=== PATIENT | female | born 1980 | race Caucasian/White ===

== ENCOUNTER 2017-09-14 03:06 | Emergency (ER) | payer BC, SELFPAY ==
[2017-09-14 03:08] VITALS: BP 138/78; PULSE 81; RESP 18; TEMP 36.7; O2SAT 97; BMI 44.7
--- NOTE | 2017-09-14 03:23 | RAD_ITS ---
STUDY: X-RAY CHEST REASON FOR EXAM: Female, 37 years old. Heart palpitation and dizziness TECHNIQUE: PA and lateral views of the chest. COMPARISON: None. FINDINGS: The lungs are clear and expanded. There is no demonstrated pleural abnormality. Normal size heart. Normal mediastinum and jesus. Normal visualized pulmonary arteries. Normal visualized aortic arch and descending thoracic aorta. Normal visualized thoracic spine. Normal visualized ribs, clavicles, and shoulders. There is no demonstrated abnormality of the visualized soft tissue structures of the upper abdomen. RAD/Chest PA and Lateral IMPRESSION: Normal x-ray examination of the chest. Electronically Signed: Mily Edmondson MD at 4:42 EDT , Service support ,
--- NOTE | 2017-09-14 03:23 | EKG12_ITS ---
Test Reason : PALPS Blood Pressure : / mmHG Vent. Rate : 078 BPM Atrial Rate : 078 BPM P-R Int : 156 ms QRS Dur : 076 ms QT Int : 374 ms P-R-T Axes : 061 014 044 degrees QTc Int : 426 ms Normal sinus rhythm Normal ECG Confirmed by ALICIA SCHWARTZ, MARICARMEN ([id number]), glass lathe operator CHELLY VALENCIA ([id number]) on 09/17/2017 2:06:01 PM Referred By: DEDE Confirmed By:MAIRCARMEN VARGAS MD
[2017-09-14] MEDS: 0.9% Normal Saline 1,000 ML 1000 ML IV (03:32)
[2017-09-14 03:33] VITALS: BP 120/80; BP 129/87; BP 138/75; PULSE 74; PULSE 80; PULSE 84
[2017-09-14 03:36] LABS: Bedside Glucose 143 mg/dL (70-110)
--- NOTE | 2017-09-14 03:37 | NURSING ---
NO OLD EKG'S IN MUSE
[2017-09-14 03:39] LABS: Absolute Lymphocyte Count 2.44 X10^3/ul (0.83-4.51); Basophil# 0.03 X10^3/uL; Basophil% 0.3 % (0-1); Eosinophil# 0.18 X10^3/uL; Eosinophils% 1.9 % (0-5); Hematocrit 36.5 % (37-47); Hemoglobin 12.1 g/dl (12.0-15.0); Lymphocyte # 2.44 X10^3/ul (4.0); Lymphocyte % 26.1 % (19-41); Mean Corp Hgb Conc 33.2 g/gl (32-36); Mean Corpuscular Hgb 30.9 pg (27.0-32.0); Mean Corpuscular Volume 93.1 fL (81-99); Mean Platelet Vol. 10.8 fl (6.2-12.0); Monocyte% 7.5 % (0-10); Neutrophil # 5.98 X10^3/uL (2.7-7.7); Platelet Count 173 K/mm3 (150-450); RBC Distribution Width CV 13.2 % (11.6-14.6); RBC Distribution Width SD 43.7 fl (35.1-43.9); Red Blood Count 3.92 M/mm3 (4.2-5.4); White Blood Count 9.4 K/mm3 (4.4-11.0)
[2017-09-14 03:44] LABS: POSITIVE COUNT NO; POSITIVE DIFFERENTIAL NO; POSITIVE MORPHOLOGY NO
[2017-09-14 03:47] LABS: D-Dimer Quantitative (DVT/PE) 0.44 FEU/ug/m (0.27-0.49)
[2017-09-14 03:56] LABS: Anion Gap 8 (5-15); BUN 16 mg/dL (7-18); BUN/Creat Ratio 16.5 RATIO (10-20); Chloride 107 mmol/L (98-107); Creatinine, Serum 0.97 mg/dL (0.55-1.02); EST Glomerular Filtration Rate 69 mL/min (>60); Est Glom Filt Rate - Afr Amer 83 mL/min (>60); Estimated Creatinine Clearance 83.79 ml/min; Glucose 120 mg/dL (74-106); Potassium 3.7 mmol/L (3.5-5.1); Sodium Level 139 mmol/L (136-145); Thyroid Stim Hormone (TSH) 2.25 uIU/mL (0.358-3.74)
[2017-09-14 04:00] LABS: Pregnancy, Serum, hCG Quali. NEGATIVE Negative (0-9 Nonpreg)
--- NOTE | 2017-09-14 04:10 | ED.VISSUMM ---
- ER Visit Summary Date of Service: 09/14/17 Chief Complaint: Palpitations History of Present Illness: The patient is a 37 F who presents with palpitations. Today while at work she felt like her heart was fluttering or skipping and then beating hard. She does have a history of prior similar symptoms about a week ago. She states that she did feel dizzy and lightheaded with this episode. She felt slightly short of breath. She reports a chronic cough which is unchanged from baseline. No recent illness. No fever congestion rhinorrhea. No nausea vomiting or diarrhea. No chest pain. She was told last fall that she was prediabetic but has no other known medical problems and is on no daily medications. Physical Examination: Afebrile vitals are normal Moist mucous membranes Heart regular rate and rhythm Lungs are clear to auscultation Abdomen is soft Extremities are nontender Test Results: EKG shows sinus rhythm at a rate of 78 with no acute ischemic changes no dysrhythmia. CBC BMP normal. Troponin negative. negative. D-dimer normal. TSH normal. Two-view chest x-ray on my review is unremarkable. Emergency Department Course and Treatment: Patient has normal vital signs with normal cardiac monitoring and a normal EKG here. Her symptoms had resolved prior to presentation here. She is currently asymptomatic. She has a normal workup with normal laboratory studies. Her palpitations could be related to PACs or PVCs but no evidence of life-threatening dysrhythmia here. She was advised to follow-up as an outpatient. She understands to return for new or worsening symptoms. All questions answered bedside. Patient discharged. Treatment Plan: [] Disposition: Discharge Impression: Palpitations This note was generated with [employer] dictation software. It may contain incorrect words, spelling, and punctuation that were not noted in review of the chart prior to signing ED Disposition - Plan for ED Patient: Chief Complaint: Palpitations Referrals: Care Physician,No Primary [Primary Care Provider] -
--- NOTE | 2017-09-14 04:13 | ED.DEP ---
ED Disposition - Plan for ED Patient: Chief Complaint: Palpitations Instructions: ED Palpitations Referrals: Care Physician,No Primary [Primary Care Provider] - Livan Aponte MD [STAFF PHYSICIAN] -
[2017-09-14 04:20] VITALS: BP 104/92; PULSE 70; RESP 15; O2SAT 100
== END 2017-09-14 04:25 | disposition home or self-care (01) ==
PROVIDERS: Emergency Provider Emergency Medicine
DX: R00.2 Palpitations (principal); R42 Dizziness and giddiness; R06.02 Shortness of breath; R05 Cough; R73.03 Prediabetes
CPT/HCPCS: 71046; 80048; 82962; 84443; 84484; 84703; 85025; 85379; 93005; 96360; 99285; J7030; A4216

== ENCOUNTER 2018-05-24 15:02 | Emergency (ER) | payer OTHER, SELFPAY ==
[2018-05-24 15:03] VITALS: BP 173/75; PULSE 76; RESP 16; TEMP 36.5; O2SAT 98; BMI 46.0
--- NOTE | 2018-05-24 15:28 | ED.VISSUMM ---
- ER Visit Summary Date of Service: 05/24/18 Chief Complaint: Facial injury secondary to fall History of Present Illness: The patient is a 38 F who presents secondary to facial injury after fall. This occurred at work. She misjudged a flat area in front of the car. She landed on her face. No loss conscious. Denies neck pain. Denies paresthesia, anesthesia motors. She denies loose dentition or malalignment of her teeth. She denies difficulty opening or closing her mouth. She denies any ocular, auditory or visual symptoms. She denied cardiac respiratory symptoms. Tetanus is unknown. Physical Examination: Vital signs are noted and blood pressure is elevated 173/75. She has an abrasion over the left maxillary region. There is no hyperesthesia the pulmonary. There is no step-off with palpation the infra orbital rim. Pupils equal round reactive. Extra muscle intact. No subconjunctival hemorrhage. No clinical signs of basal skull fracture. No loose dentition. No TMJ tenderness. No evidence of malocclusion. Trachea midline. No midline cervical spine tenderness and full active range of motion. Patient is alert and oriented ?3. Motor is 5 over 5. Sensory is intact. DTRs are symmetric with no clonus or Babinski sign. Cranial 2 through 12 are intact. Cerebellar testing is normal. GCS 15. Test Results: None are indicated Emergency Department Course and Treatment: Tetanus immunization Treatment Plan: Appropriate home-going instructions Disposition: Discharged home with referral to corporate care Impression: Facial abrasion secondary to fall initial encounter This note was generated with [employer] dictation software. It may contain incorrect words, spelling, and punctuation that were not noted in review of the chart prior to signing ED Disposition - Plan for ED Patient: Chief Complaint: Fall Referrals: Care Physician,No Primary [Primary Care Provider] -
--- NOTE | 2018-05-24 15:34 | ED.VISSUMM ---
- ER Visit Summary Date of Service: 05/24/18 Chief Complaint: [] History of Present Illness: The patient is a 38 F [] Physical Examination: [] Test Results: [] Emergency Department Course and Treatment: [] Treatment Plan: [] Disposition: [] Impression: [] This note was generated with [employer] dictation software. It may contain incorrect words, spelling, and punctuation that were not noted in review of the chart prior to signing ED Disposition - Plan for ED Patient: Chief Complaint: Fall Instructions: ED Abrasion Referrals: Care Physician,No Primary [Primary Care Provider] - [facility] [GROUP OF PHYSICIANS] -
--- NOTE | 2018-05-24 15:55 | ED.RN ---
PT WAS ABLE TO ACCESS VACCINATION RECORDS FROM PCP, LAST TETANUS RECEIVED IN 2017
--- NOTE | 2018-05-24 15:55 | ED.RN ---
DISCHARGE INSTRUCTIONS GIVEN TO AND REVIEWED WITH PATIENT, PATIENT DENIES QUESTIONS OR CONCERNS AND VOICES UNDERSTANDING OF DISCHARGE INSTRUCTIONS. PT AMBULATES OUT OF ROOM WITHOUT DIFFICULTY.
--- OUTSIDE RECORDS SUMMARY | 2018-07-20 08:23 | XMS RPT_ITS ---
:1980 Author Organization [facility] Care Team Providers Name Role Phone DANGELO PERSAUD ([facility]) Attending Unavailable DANGELO PERSAUD ([facility]) Referring Unavailable KEIRY SCHWARTZ, DANIELE Shen Attending Unavailable PHYSICIAN, NONE Primary Care Unavailable Primay Care Physicia, No Primary Care Unavailable Robin Smith Attending Unavailable Sunny Posey Attending Unavailable Prim[facility] Care Physicia, No Referring Unavailable Prim[facility] Care Physicia, No Primary Care Unavailable Primay Care Physicia, No Primary Care Unavailable Kaushal Cardoso Attending Unavailable PROBLEMS PROBLEMS DATE TYPE CONDITION / CODE ATTENDING STATUS SOURCE 10/29/2017 Active Encounter for NA Active [facility] adult [facility] medical Repository examination without abnormal findings / Z00.00(ICD-10) 10/29/2017 Active Prediabetes / NA Active [facility] R73.03(ICD-10) Main [place] Repository 10/29/2017 Active Hyperlipidemia, NA Active [facility] unspecified / Main [place] E78.5(ICD-10) Repository PROCEDURES PROCEDURES No Procedure Records FoundRESULTS RESULTS EMERGENCY DEPARTMENT Observed: 05/24/2018 Status: F Source: [place] SUMMARY 3:35 PM [facility] REPOSITORY [facility] Medical Records Department [address] [place] [address] Emergency Department Summary 05/24/18 1534 MR#: [id number] Acct: [id number] Name: NILESH KILGORE Rep #: [id number] : 1980 38 From: Kaushal Cardoso MD PCP: Care Physician, No Primary Status: REG ER - ER Visit Summary Date of Service: 05/24/18 Chief Complaint: [] History of Present Illness: The patient is a 38 F [] Physical Examination: [] Test Results: [] Emergency Department Course and Treatment: [] Treatment Plan: [] Disposition: [] Impression: [] This note was generated with Go Vocab dictation software. It may contain incorrect words, spelling, and punctuation that were not noted in review of the chart prior to signing ED Disposition - Plan for ED Patient: Chief Complaint: Fall Instructions: ED Abrasion Referrals: Care Physician,No Primary [Primary Care Provider] - Corporate,Care [GROUP OF PHYSICIANS] - What to do if you have Problems For any increased pain, shortness of breath, bleeding, nausea or vomiting, chest pain, or any unexpected problems, contact your Primary Care Provider. Call [facility] ([phone]) or report to the closest Emergency Room. Call 911 if necessary. 05/24/18 1535 <Electronically signed by Kaushal Cardoso MD> Date Kaushal Cardoso MD Cosigner Signature (If Indicated): Date CC: No Primary Care Physician EMERGENCY DEPARTMENT Observed: 05/24/2018 Status: F Source: [place] SUMMARY 3:31 PM [facility] REPOSITORY [facility] Medical Records Department [address] [place] [address] Emergency Department Summary 05/24/18 1528 MR#: [id number] Acct: [id number] Name: NILESH KILGOER Rep #: [id number] : 1980 38 From: Kaushal Cardoso MD PCP: Care Physician, No Primary Status: REG ER - ER Visit Summary Date of Service: 05/24/18 Chief Complaint: Facial injury secondary to fall History of Present Illness: The patient is a 38 F who presents secondary to facial injury after fall. This occurred at work. She misjudged a flat area in front of the car. She landed on her face. No loss conscious. Denies neck pain. Denies paresthesia, anesthesia motors. She denies loose dentition or malalignment of her teeth. She denies difficulty opening or closing her mouth. She denies any ocular, auditory or visual symptoms. She denied cardiac respiratory symptoms. Tetanus is unknown. Physical Examination: Vital signs are noted and blood pressure is elevated 173/75. She has an abrasion over the left maxillary region. There is no hyperesthesia the pulmonary. There is no step-off with palpation the infra orbital rim. Pupils equal round reactive. Extra muscle intact. No subconjunctival hemorrhage. No clinical signs of basal skull fracture. No loose dentition. No TMJ tenderness. No evidence of malocclusion. Trachea midline. No midline cervical spine tenderness and full active range of motion. Patient is alert and oriented 3. Motor is 5 over 5. Sensory is intact. DTRs are symmetric with no clonus or Babinski sign. Cranial 2 through 12 are intact. Cerebellar testing is normal. GCS 15. Test Results: None are indicated Emergency Department Course and Treatment: Tetanus immunization Treatment Plan: Appropriate home-going instructions Disposition: Discharged home with referral to corporate care Impression: Facial abrasion secondary to fall initial encounter This note was generated with Magicbloxation software. It may contain incorrect words, spelling, and punctuation that were not noted in review of the chart prior to signing ED Disposition - Plan for ED Patient: Chief Complaint: Fall Referrals: Care Physician,No Primary [Primary Care Provider] - What to do if you have Problems For any increased pain, shortness of breath, bleeding, nausea or vomiting, chest pain, or any unexpected problems, contact your Primary Care Provider. Call [facility] ([phone]) or report to the closest Emergency Room. Call 911 if necessary. 05/24/18 1531 <Electronically signed by Kaushal Cardoso MD> Date Kaushal Cardoso MD Cosigner Signature (If Indicated): Date CC: Care Corporate; No Primary Care Physician COMP METABOLIC PANEL Collected: 10/29/2017 Status: F Source: [place] 11:[address] [facility] REPOSITORY TYPE CODE TESTS RESULT OUT OF REFERENCE UNITS RANGE LAB TP 6.3-8.0 g/dL Low Protein, Total 5.9 LAB ALB 3.9-4.9 g/dL Low Albumin 3.8 LAB CA 8.5-10.2 mg/dL Calcium, Total 8.8 LAB TBIL 0.2-1.3 mg/dL Bilirubin, Total 0.3 LAB ALKP 32-117 U/L Alkaline Phosphatase 77 LAB AST 13-35 U/L AST 13 LAB GLU 74-99 mg/dL Glucose High 112 Result Comment: The [place] [employer] Association (ADA) provides guidance for cutoff values for fasting glucose and random glucose. The ADA defines fasting as no caloric intake for at least 8 hours. Fas ting plasma glucose results between 100 to 125 mg/dL indicate increased risk for diabetes (prediabetes). Fasting plasma glucose results greater than or equal to 126 mg/dL meet the criteria for diagnosis of diabetes. In the absence of unequivocal hyperglycemia, results should be confirmed by repeat testing. In a patient with classic symptoms of hyperglycemia or hyperglycemic crisis, random plasma glucose results greater than or equal to 200 mg/dL meet the criteria for diagnosis of diabetes. Reference: Standards of Medical Care in Diabetes 2016, [place] [employer] Association. Diabetes Care. 2016.39(Suppl 1). LAB BUN 7-21 mg/dL BUN 14 LAB CRET 0.58-0.96 mg/dL Creatinine 0.74 LAB NA 136-144 mmol/L Sodium 139 LAB K 3.7-5.1 mmol/L Potassium 4.7 LAB CL 97-105 mmol/L Chloride 105 LAB CO2 22-30 mmol/L CO2 24 LAB AGAP 9-18 mmol/L Anion Gap 10 LAB ALT 7-38 U/L ALT 13 LAB GFRAA eGFR- Amer. >60 LAB GFRNAA . eGFR-All Other Races >60 Result Comment: eGFR (Estimated GFR) Units of measure: mL/min/1.73 meters squared eGFR is derived from the reexpressed MDRD Study equation using the following parameters: serum creatinine, age, gender and race. The creatinine assay has been calibrated to be traceable to IDMS. An eGFR <60 mL/min/1.73m2 for >3 months is consistent with chronic kidney disease. Refer to KDOQI guidelines for clinical interpretation. In patients with unstable renal function, e.g. those with acute kidney injury, the eGFR may not accurately reflect actual GFR. Performed By: #### CMP, CBCDIF #### [facility] [address] [place], [place] [address] CBC AND DIFFERENTIAL Collected: 10/29/2017 Status: F Source: [place] 11:[address] [facility] REPOSITORY TYPE CODE TESTS RESULT OUT OF REFERENCE UNITS RANGE LAB WBC 3.70-11.00 k/uL WBC 7.93 LAB RBC 3.90-5.20 m/uL RBC 3.95 LAB HGB 11.5-15.5 g/dL Hemoglobin 11.9 LAB HCT 36.0-46.0 % Hematocrit 38.5 LAB MCV 80.0-100.0 fL MCV 97.5 LAB MCH 26.0-34.0 pG MCH 30.1 LAB MCHC 30.5-36.0 g/dL MCHC 30.9 LAB RDWCV 11.5-15.0 % RDW-CV 13.3 LAB PLTCT 150-400 k/uL Platelet Count 159 LAB MPV 9.0-12.7 fL MPV 12.1 LAB ANEUT % Neut% 59.1 LAB AANEUT 1.45-7.50 k/uL Abs Neut 4.67 LAB ALYMP % Lymph% 27.9 LAB AALYMP 1.00-4.00 k/uL Abs Lymph 2.21 LAB AMONO % [place]% 9.6 LAB AAMONO <0.87 k/uL Abs [place] 0.76 LAB AEOS % Eosin% 2.8 LAB AAEOS <0.46 k/uL Abs Eosin 0.22 LAB ABASO % Baso% 0.6 LAB AABASO <0.11 k/uL Abs Baso 0.05 LAB AUNRBC 0 /100 WBC NRBCs 0.0 LAB ABNRBC <0.01 k/uL Absolute nRBC <0.01 LAB DTYP DTYPE Auto Diff Performed By: #### CMP, CBCDIF #### [facility] [address] [place] [id number] PROGRESS Observed: 09/28/2017 Status: COMPLETED Source: [place] 1:[address] [facility] REPOSITORY HNO ID: [id number] Author: Dangelo Persaud Service: (none) Author Type: Nurse Practitioner Type: Progress Notes Filed: 09/28/2017 3:58 PM Note Text: 09/28/2017 Patient presents with: Physical/check right foot SUBJECTIVE: This is a 37 year old that is here today for physical and concern for ankle. She states that her dog jumped and landed on right lateral foot 2 weeks ago and it has been tender since. She states that she would not have mentioned it unless she was coming in. She is able to walk on it and the pain has not required any treatment OTC. 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 PAST MEDICAL HISTORY Diagnosis Date - Dyslipidemia - Gestational diabetes - Morbid obesity (HCC) ALLERGIES Demerol [Meperidine (Pf)] MEDICATIONS Current Outpatient Prescriptions: LORATADINE (CLARITIN ORAL) Take by mouth. levonorgestrel (MIRENA) 20 mcg/24 hr (5 years) IUD 1 Each by INTRAUTERINE route continuous. No current facility-administered medications for this visit. Medications and allergies reviewed by this provider. SOCIAL HISTORY Social History Marital status: Single Spouse name: Years of education: Number of children: 1 Occupational History Occupation Employer Comment [employer] Social History Main Topics Smoking status: Former Smoker Packs/day: 0.00 Years: 0.00 Types: Cigarettes Smokeless status: Never Used Alcohol use: Yes Comment: rare Drug use: No Sexual activity: Yes Partners with: Male REVIEW OF SYSTEMS GENERAL: No weight loss, malaise or fevers HEENT: Negative for frequent or significant headaches, No changes in hearing or vision, no nose bleeds or other nasal problems, wears glasses, last exam was 3-4 years ago and does not have insurance currently- no concerns with eye changes at this time NECK: Negative for lumps, goiter, pain and significant neck swelling RESPIRATORY: Negative for hemoptysis, wheezing, COPD, dyspnea or shortness of breath. She has noticed a dry cough since she started working at her current job and feels related to dust CARDIOVASCULAR: Negative for chest pain, leg swelling, hypertension, CHF or palpitations GI: No nausea, vomiting, or diarrhea and No heartburn or reflux symptoms : No history of dysuria, frequency or incontinence TIE KNITTER HELPER: Negative for abnormal vaginal bleeding, abnormal vaginal discharge MUSCULOSKELETAL: Negative for joint pain or swelling, back pain or muscle pain, see HPI SKIN: Negative for lesions, rash, and itching PSYCH: Negative for sleep disturbance, mood disorder and recent psychosocial stressors HEMATOLOGY/LYMPHOLOGY: Negative for prolonged bleeding, bruising easily or swollen nodes ENDOCRINE: Negative for cold or heat intolerance, polyuria, polydipsia and goiter NEURO: No history of headaches, syncope, paralysis, seizures or tremors Diet: 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 She states that she will eat dinner before work and a sandwich during work. Trying to do more of meat and vegetable and cut back on carbs. She states that she is starting to have more energy and has lost some, but started to gain with the manufacture specialist routine since May. Exercise: no regular exercise program. She states that she was going to the gym, but with working nights and dad being ill, she has not been able to get a routine started again. OBJECTIVE: BP 108/68 (BP Site: Left Arm, BP Position: Sitting, BP Cuff Size: Large Adult) Pulse 88 Temp (!) 35.2 ?C (95.3 ?F) Resp 14 Ht 175.3 cm (5' 9) Wt 133.8 kg (295 lb) SpO2 99% BMI 43.56 kg/m2. Vital signs reviewed by this provider. PHYSICAL EXAMINATION: General appearance: Well appearing, alert, in no acute distress, well-hydrated, well nourished., Morbidly obese Skin: Skin color, texture, turgor normal, no suspicious rashes or lesions Head: Normocephalic, no masses, lesions, tenderness or abnormalities Eyes: Anicteric sclera. Pupils are equally round and reactive to light. Extraocular movements are intact. Ears: External ears normal, canals clear, TMs normal Nose/Sinuses: Positive findings: mucosa erythematous and swollen Oropharynx: Lips, mucosa, and tongue normal, teeth and gums normal, oropharynx normal Neck: Supple, no adenopathy; thyroid symmetric, normal size, no bruits Back: Normal exam, no pain to palpation, good flexion and extension Lungs: Lungs clear to auscultation. No wheezing, rhonchi, rales Heart: RRR without murmur, gallop, or rubs. No ectopy Abdomen: Abdomen soft, non-tender. Bowel sounds normal. No masses, organomegaly Extremities: No deformities, edema, skin discoloration, clubbing or cyanosis. Good capillary refill. , Pulses: 2+ Musculoskeletal: Spine range of motion normal. Muscular strength intact, Range of motion normal in hips, knees, shoulders, and spine, No joint swelling, deformity, or tenderness Neuro: Gait normal. Reflexes normal and symmetric. Sensation grossly intact., Negative findings: speech normal, mental status intact, cranial nerves 2-12 intact, gait, including heel, toe, and tandem walking normal, Romberg negative, muscle tone normal, muscle strength normal, finger to nose normal ASSESSMENT/PLAN: 1. Routine physical examination - ICD9: V70.0, ICD10: Z00.00 (primary diagnosis) - Recommended regular aerobic exercise. - Discussed need and benefit for weight loss. BMI 43.56 kg/(m2) - Vaccination(s) today of Hep B - Follow up for annual exam in one year. - CBC + DIFF - COMP METABOLIC PANEL - form completed and given to pt with immunization history and titer results 2. Dyslipidemia - ICD9: 272.4, ICD10: E78.5 - to be determined upon return of lab results - Encouraged following a low fat, low cholesterol diet. - Discussed the benefits of regular aerobic exercise and weight loss. - Encouraged following a low carbohydrate, healthy oil intake diet. - LIPID PANEL BASIC 3. Prediabetes - ICD9: 790.29, ICD10: R73.03 - Discussed healthy diet and exercise recommendations - HGB A1C 4. Obesity, Class III, BMI 40-49.9 (morbid obesity) (HCC) - ICD9: 278.01, ICD10: E66.01 - Discussed healthy diet and exercise recommendations Dangelo Persaud APRN.CNP CNOV Observed: 09/28/2017 Status: COMPLETED Source: [place] 1:00 PM [facility] REPOSITORY Office Visit (FAMPWS) NILESH KILGORE ([id number]) 1980 F Date Time Provider Department 09/28/17 1:00 PM DANGELO PERSAUD ([place] During your visit today, we recorded the following information about you: Temperature Pulse Respiration Blood pressure 95.3 degrees 88/minute 14/minute 108/68 Weight Height 133.8 kg 1.753 m Dangelo Persaud APRN.CNP 09/28/2017 3:58 PM Signed 09/28/2017 Patient presents with: Physical/check right foot SUBJECTIVE: This is a 37 year old that is here today for physical and concern for ankle. She states that her dog jumped and landed on right lateral foot 2 weeks ago and it has been tender since. She states that she would not have mentioned it unless she was coming in. She is able to walk on it and the pain has not required any treatment OTC. 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 PAST MEDICAL HISTORY Diagnosis Date - Dyslipidemia - Gestational diabetes - Morbid obesity (HCC) ALLERGIES Demerol [Meperidine (Pf)] MEDICATIONS Current Outpatient Prescriptions: LORATADINE (CLARITIN ORAL) Take by mouth. levonorgestrel (MIRENA) 20 mcg/24 hr (5 years) IUD 1 Each by INTRAUTERINE route continuous. No current facility-administered medications for this visit. Medications and allergies reviewed by this provider. SOCIAL HISTORY Social History Marital status: Single Spouse name: Years of education: Number of children: 1 Occupational History Occupation Employer Comment [employer] Social History Main Topics Smoking status: Former Smoker Packs/day: 0.00 Years: 0.00 Types: Cigarettes Smokeless status: Never Used Alcohol use: Yes Comment: rare Drug use: No Sexual activity: Yes Partners with: Male REVIEW OF SYSTEMS GENERAL: No weight loss, malaise or fevers HEENT: Negative for frequent or significant headaches, No changes in hearing or vision, no nose bleeds or other nasal problems, wears glasses, last exam was 3-4 years ago and does not have insurance currently- no concerns with eye changes at this time NECK: Negative for lumps, goiter, pain and significant neck swelling RESPIRATORY: Negative for hemoptysis, wheezing, COPD, dyspnea or shortness of breath. She has noticed a dry cough since she started working at her current job and feels related to dust CARDIOVASCULAR: Negative for chest pain, leg swelling, hypertension, CHF or palpitations GI: No nausea, vomiting, or diarrhea and No heartburn or reflux symptoms : No history of dysuria, frequency or incontinence TIE KNITTER HELPER: Negative for abnormal vaginal bleeding, abnormal vaginal discharge MUSCULOSKELETAL: Negative for joint pain or swelling, back pain or muscle pain, see HPI SKIN: Negative for lesions, rash, and itching PSYCH: Negative for sleep disturbance, mood disorder and recent psychosocial stressors HEMATOLOGY/LYMPHOLOGY: Negative for prolonged bleeding, bruising easily or swollen nodes ENDOCRINE: Negative for cold or heat intolerance, polyuria, polydipsia and goiter NEURO: No history of headaches, syncope, paralysis, seizures or tremors Diet: 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 She states that she will eat dinner before work and a sandwich during work. Trying to do more of meat and vegetable and cut back on carbs. She states that she is starting to have more energy and has lost some, but started to gain with the manufacture specialist routine since May. Exercise: no regular exercise program. She states that she was going to the gym, but with working nights and dad being ill, she has not been able to get a routine started again. OBJECTIVE: BP 108/68 (BP Site: Left Arm, BP Position: Sitting, BP Cuff Size: Large Adult) Pulse 88 Temp (!) 35.2 ?C (95.3 ?F) Resp 14 Ht 175.3 cm (5' 9ANDquot;) Wt 133.8 kg (295 lb) SpO2 99% BMI 43.56 kg/m2. Vital signs reviewed by this provider. PHYSICAL EXAMINATION: General appearance: Well appearing, alert, in no acute distress, well-hydrated, well nourished., Morbidly obese Skin: Skin color, texture, turgor normal, no suspicious rashes or lesions Head: Normocephalic, no masses, lesions, tenderness or abnormalities Eyes: Anicteric sclera. Pupils are equally round and reactive to light. Extraocular movements are intact. Ears: External ears normal, canals clear, TMs normal Nose/Sinuses: Positive findings: mucosa erythematous and swollen Oropharynx: Lips, mucosa, and tongue normal, teeth and gums normal, oropharynx normal Neck: Supple, no adenopathy; thyroid symmetric, normal size, no bruits Back: Normal exam, no pain to palpation, good flexion and extension Lungs: Lungs clear to auscultation. No wheezing, rhonchi, rales Heart: RRR without murmur, gallop, or rubs. No ectopy Abdomen: Abdomen soft, non-tender. Bowel sounds normal. No masses, organomegaly Extremities: No deformities, edema, skin discoloration, clubbing or cyanosis. Good capillary refill. , Pulses: 2+ Musculoskeletal: Spine range of motion normal. Muscular strength intact, Range of motion normal in hips, knees, shoulders, and spine, No joint swelling, deformity, or tenderness Neuro: Gait normal. Reflexes normal and symmetric. Sensation grossly intact., Negative findings: speech normal, mental status intact, cranial nerves 2-12 intact, gait, including heel, toe, and tandem walking normal, Romberg negative, muscle tone normal, muscle strength normal, finger to nose normal ASSESSMENT/PLAN: 1. Routine physical examination - ICD9: V70.0, ICD10: Z00.00 (primary diagnosis) - Recommended regular aerobic exercise. - Discussed need and benefit for weight loss. BMI 43.56 kg/(m2) - Vaccination(s) today of Hep B - Follow up for annual exam in one year. - CBC + DIFF - COMP METABOLIC PANEL - form completed and given to pt with immunization history and titer results 2. Dyslipidemia - ICD9: 272.4, ICD10: E78.5 - to be determined upon return of lab results - Encouraged following a low fat, low cholesterol diet. - Discussed the benefits of regular aerobic exercise and weight loss. - Encouraged following a low carbohydrate, healthy oil intake diet. - LIPID PANEL BASIC 3. Prediabetes - ICD9: 790.29, ICD10: R73.03 - Discussed healthy diet and exercise recommendations - HGB A1C 4. Obesity, Class III, BMI 40-49.9 (morbid obesity) (HCC) - ICD9: 278.01, ICD10: E66.01 - Discussed healthy diet and exercise recommendations Dangelo Persaud APRN.HYDRO OPERATOR Referring Provider: SELF [200] Allergies As of Date: 09/28/2017 Noted Allergy Reaction DEMEROL (MEPERIDINE (PF)) 10/27/2016 4 - Hives Date Reviewed: 09/28/2017 Reviewed by: Sugey Beebe LPN - Fully Assessed Reason for Visit: Physical/check right foot [Other] Reason For Visit History Recorded Primary Visit Diagnosis:Routine physical examination [Z00.00] Other Visit Diagnoses:Dyslipidemia [E78.5] Prediabetes [R73.03] Obesity, Class III, BMI 40-49.9 (morbid obesity) (HCC) [E66.01] Order(s):CBC + DIFF [SQCBCDIF] Order #: [id number] FUTURE COMP METABOLIC PANEL [SQCMP] Order #: [id number] FUTURE HGB A1C [LWNBQ0E] Order #: [id number] FUTURE LIPID PANEL BASIC [SQLIPB] Order #: [id number] FUTURE Prescriptions as of 09/28/2017 Sig: CLARITIN ORAL Take by mouth. LEVONORGESTREL 20 MCG/24 HR (* 1 Each by INTRAUTERINE route * Problem List As Of Date 09/28/2017 Noted Resolved HPV test positive [LEA3019] INVALID FOR* Heavy menses [N92.0] INVALID FOR* Obesity, Class III, BMI >= 40 E66.01 [E66.01] INVALID FOR* Disposition: Return in about 2 months (around 11/28/2017) for Nurse visit for 3rd Hep B. Follow-up and Disposition History Recorded Encounter Status:Closed by DANGELO PERSAUD on 09/28/17 12 LEAD ELECTROCARDIOGRAM Observed: 09/17/2017 Status: F Source: [place] 2:06 PM [facility] REPOSITORY [facility] Cardiovascular Services [address] [place] [address] 12 Lead EKG 09/14/17 0309 MR#: [id number] Acct: [id number] Name: NILESH KILGORE Rep #: [id number] : 1980 37 From: Lencho Warren MD Attending Dr: Status: DEP ER Ordering Dr: Robin Smith MD Date: 09/14/17 Location: ED Sex: F C Admitted: Test Reason : PALPS Blood Pressure : / mmHG Vent. Rate : 078 BPM Atrial Rate : 078 BPM P-R Int : 156 ms QRS Dur : 076 ms QT Int : 374 ms P-R-T Axes : 061 014 044 degrees QTc Int : 426 ms Normal sinus rhythm Normal ECG Confirmed by LENCHO WARREN MD ([id number]), book editor CHELLY VALENCIA ([id number]) on 09/17/2017 2:06:01 PM Referred By: DEDE Confirmed By:LENCHO WARREN MD 09/17/17 1406 Date Lencho Warren MD CC: No Primary Care Physician; Robin Smith MD Signed DISCHARGE INSTRUCTION Observed: 09/14/2017 Status: F Source: [place] 4:14 AM [facility] REPOSITORY [facility] Medical Records Department [address] [place] [address] Discharge Instruction 09/14/17 0413 MR#: [id number] Acct: [id number] Name: MAGUINILESH Rep #: [id number] : 1980 37 From: Robin Smith MD PCP: Care Physician, No Primary Status: REG ER ED Disposition - Plan for ED Patient: Chief Complaint: Palpitations Instructions: ED Palpitations Referrals: Care Physician,No Primary [Primary Care Provider] - Livan Aponte MD [STAFF PHYSICIAN] - What to do if you have Problems For any increased pain, shortness of breath, bleeding, nausea or vomiting, chest pain, or any unexpected problems, contact your Primary Care Provider. Call [facility] ([phone]) or report to the closest Emergency Room. Call 911 if necessary. 09/14/17 0414 <Electronically signed by Robin Smith MD> Date Robin Smith MD Cosigner Signature (If Indicated): Date CC: No Primary Care Physician EMERGENCY DEPARTMENT Observed: 09/14/2017 Status: F Source: [place] SUMMARY 4:13 AM [facility] REPOSITORY [facility] Medical Records Department [address] [place] [address] Emergency Department Summary 09/14/17 0410 MR#: [id number] Acct: [id number] Name: NILESH KILGORE Rep #: [id number] : 1980 37 From: Robin Smith MD PCP: Care Physician, No Primary Status: REG ER - ER Visit Summary Date of Service: 09/14/17 Chief Complaint: Palpitations History of Present Illness: The patient is a 37 F who presents with palpitations. Today while at work she felt like her heart was fluttering or skipping and then beating hard. She does have a history of prior similar symptoms about a week ago. She states that she did feel dizzy and lightheaded with this episode. She felt slightly short of breath. She reports a chronic cough which is unchanged from baseline. No recent illness. No fever congestion rhinorrhea. No nausea vomiting or diarrhea. No chest pain. She was told last fall that she was prediabetic but has no other known medical problems and is on no daily medications. Physical Examination: Afebrile vitals are normal Moist mucous membranes Heart regular rate and rhythm Lungs are clear to auscultation Abdomen is soft Extremities are nontender Test Results: EKG shows sinus rhythm at a rate of 78 with no acute ischemic changes no dysrhythmia. CBC BMP normal. Troponin negative. negative. D-dimer normal. TSH normal. Two-view chest x-ray on my review is unremarkable. Emergency Department Course and Treatment: Patient has normal vital signs with normal cardiac monitoring and a normal EKG here. Her symptoms had resolved prior to presentation here. She is currently asymptomatic. She has a normal workup with normal laboratory studies. Her palpitations could be related to PACs or PVCs but no evidence of life-threatening dysrhythmia here. She was advised to follow-up as an outpatient. She understands to return for new or worsening symptoms. All questions answered bedside. Patient discharged. Treatment Plan: [] Disposition: Discharge Impression: Palpitations This note was generated with Go Vocab dictation software. It may contain incorrect words, spelling, and punctuation that were not noted in review of the chart prior to signing ED Disposition - Plan for ED Patient: Chief Complaint: Palpitations Referrals: Care Physician,No Primary [Primary Care Provider] - What to do if you have Problems For any increased pain, shortness of breath, bleeding, nausea or vomiting, chest pain, or any unexpected problems, contact your Primary Care Provider. Call [facility] ([phone]) or report to the closest Emergency Room. Call 911 if necessary. 09/14/17 0413 <Electronically signed by Rboin Smith MD> Date Robin Smith MD Cosigner Signature (If Indicated): Date CC: No Primary Care Physician BEDSIDE GLUCOSE Collected: 09/14/2017 Status: F Source: [place] 3:30 AM [facility] REPOSIT[facility] TYPE CODE TESTS RESULT OUT OF REFERENCE UNITS RANGE LAB L501.080 70-110 mg/dL High BEDSIDE GLU 143 Result Comment: MANAGEMENT OF PATIENT CARE PER NURSING PROTOCOL Performed By: #### L501.080 #### [facility] Point of Care [address] [place] [address] CHEST PA AND LATERAL Observed: 09/14/2017 Status: F Source: [place] 3:24 AM [facility] REPOSIT[facility] Imaging Services [address] [place] [address] Chest PA and Lateral MR#: [id number] Acct: [id number] Name: NILESH KILGORE Rep #: [id number] : 1980 F 37 From: Mily Edmondson MD PCP: Care Physician, No Primary Status: DEP ER Study: Chest PA and Lateral Date of Exam: 09/14/17 Exam# [id number] Ordering Dr: Robin Smith MD STUDY: X-RAY CHEST REASON FOR EXAM: Female, 37 years old. Heart palpitation and dizziness TECHNIQUE: PA and lateral views of the chest. COMPARISON: None. FINDINGS: The lungs are clear and expanded. There is no demonstrated pleural abnormality. Normal size heart. Normal mediastinum and jesus. Normal visualized pulmonary arteries. Normal visualized aortic arch and descending thoracic aorta. Normal visualized thoracic spine. Normal visualized ribs, clavicles, and shoulders. There is no demonstrated abnormality of the visualized soft tissue structures of the upper abdomen. RAD/Chest PA and Lateral IMPRESSION: Normal x-ray examination of the chest. Electronically Signed: Mily Edmondson MD at 4:42 EDT , Service support , CC: No Primary Care Physician; Robin Smith MD Dietician: Signed CBC W/DIFF, AUTOMATED Collected: 09/14/2017 Status: F Source: [place] 3:15 AM [facility] TYPE CODE TESTS RESULT OUT OF RANGE REFERENCE UNITS LAB L100.1000 4.4-11.0 K/mm3 Normal WBC 9.4 LAB L100.1200 4.2-5.4 M/mm3 Low RBC 3.92 LAB L100.1300 12.0-15.0 g/dl Normal HGB 12.1 LAB L100.1400 37-47 % Low HCT 36.5 LAB L100.1500 81-99 fL Normal MCV 93.1 LAB L100.1600 27.0-32.0 pg Normal MCH 30.9 LAB L100.1700 32-36 g/gl Normal MCHC 33.2 LAB L100.1810 11.6-14.6 % Normal RDW CV 13.2 LAB L100.1820 35.1-43.9 fl Normal RDW SD 43.7 LAB L100.1900 150-450 K/mm3 Normal PLT 173 LAB L100.2000 6.2-12.0 fl Normal MPV 10.8 LAB L100.2100 47-70 % Normal NEUT% 64.0 LAB L100.2200 19-41 % Normal LY% 26.1 LAB L100.2300 0-10 % Normal MONO% 7.5 LAB L100.2400 0-5 % Normal EO% 1.9 LAB L100.2500 0-1 % Normal BASO% 0.3 LAB L100.2550 0.0-0.9 % Normal IM GRAN % 0.200 Result Comment: IG% - Immature Granulocytes (promyelocytes, myelocytes and metamyelocytes) > 1% indicates that a LEFT SHIFT is Present. LAB L100.2620 2.0-7.7 X10 3/uL Normal Absolute Neut 6.0 LAB L100.2720 0.83-4.51 X10 3/ul Normal Absolute Lymph 2.44 Performed By: #### L100.0100 #### [facility] [address] [place], [place], [id number] D-DIMER QUANTITATIVE Collected: 09/14/2017 Status: F Source: [place] (DVT/PE) 3:15 AM [facility] REPOS[facility] TYPE CODE TESTS RESULT OUT OF RANGE REFERENCE UNITS LAB L300.8000 0.27-0.49 FEU/ug/m Normal D-DIMER 0.44 QUANT Result Comment: NORMAL D-Dimer level (<0.50) indicates no DVT or PE. Performed By: #### L300.8000 #### [facility] [address] [place], [place], [id number] BASIC METABOLIC Collected: 09/14/2017 Status: F Source: [place] PROFILE (BMP) 3:15 AM [facility] REPOSIT[facility] Order Comment: 'TROP' Serial specimen #1, #2, #3, or #4: 1 TYPE CODE TESTS RESULT OUT OF RANGE REFERENCE UNITS LAB L501.0100 74-106 mg/dL High GLU 120 Result Comment: Fasting Glucose result from 100 to 125 mg/dL suggests IMPAIRED HOMEOSTASIS per A.D.A. criteria. Please note revised GLUCOSE reference range effective 2017. LAB L501.1000 7-18 mg/dL Normal BUN 16 LAB L501.1100 0.55-1.02 mg/dL Normal CREAT,SERUM 0.97 Result Comment: The validity of the calculated GFR AND GFRAA in patients over 70 years has not been determined. Clinical correlation is essential. LAB L501.1110 >60 mL/min Normal EST GFR 69 Result Comment: Non- GFR Calc LAB L501.1115 >60 mL/min Normal EST GFR - AA 83 Result Comment: GFR Calc LAB L501.1255 ml/min Normal Estimated CRCL 83.79 LAB L501.1300 10-20 RATIO Normal BUN/CRE 16.5 LAB L501.2200 8.5-10 mg/dL Low .1 CA 8.0 LAB L501.5300 136-14 mmol/L Normal 5 NA 139 LAB L501.5600 3.5-5. mmol/L Normal 1 K 3.7 LAB L501.5900 98-107 mmol/L Normal CL 107 LAB L501.6100 21.0-3 mmol/L Normal 2.0 CO2 24.0 LAB L501.6200 5-15 Normal GAP 8 Performed By: #### L500.2500, L501.4010, L501.9520 #### [facility] [address] [place], [address] TROPONIN-I Collected: 09/14/2017 Status: F Source: [place] 3:15 AM [facility] Order Comment: 'TROP' Serial specimen #1, #2, #3, or #4: 1 TYPE CODE TESTS RESULT OUT OF RANGE REFERENCE UNITS LAB L501.4010 <0.06 ng/mL Normal < 0.02 TROPONIN-I Result Comment: TROPONIN-I EXPECTED VALUES <0.05 NEGATIVE 0.06 - 0.59 AT RISK OF ID > OR = 0.60 SUGGEST ID Performed By: #### L500.2500, L501.4010, L501.9520 #### [facility] [address] [place], [address] THYROID STIM HORMONE Collected: 09/14/2017 Status: F Source: [place] (TSH) 3:15 AM [facility] Order Comment: 'TROP' Serial specimen #1, #2, #3, or #4: 1 TYPE CODE TESTS RESULT OUT OF RANGE REFERENCE UNITS LAB L501.9520 0.358-3.74 uIU/mL Normal TSH 2.25 Performed By: #### L500.2500, L501.4010, L501.9520 #### [facility] [address] [place], [address] ,SERUM,HCG QUALI. Collected: Status: F Source: [place] 09/14/2017 3:15 AM [facility] RE[facility] TYPE CODE TESTS RESULT OUT OF REFERENCE UNITS RANGE LAB L700.7000 0-9 Nonpreg Negative Normal HCGSQUAL NEGATIVE LAB L700.6700 =>Qualitative mIU/mL Normal HCG Qual < 1 triggr Performed By: #### L700.6800 #### [facility] [address] [place], [address] ALLERGIES ALLERGIES DATE TYPE / CODE NAME / CODE REACTION SEVERITY SOURCE 05/24/2018 Drug meperidine Hives Unknown [facility] Allergy/416 HCl/[id number](RX [facility] 029731([facility] ED CT) Repository 10/27/2016 DRUG/032767 MEPERIDINE (PF) HIVES [facility] 003([facility] CT) Repository ENCOUNTERS ENCOUNTERS ADMIT/DISCHARGE ACCOUNT NUMBER ADMITTING ENCOUNTER LOCATION SOURCE CLASS 05/24/2018/05/24/20 [id number] Emergency [address] ding:ED Repository 11/11/2017/11/12/19 [id number] Emergency BBuilding:NICHOLAS Lundberg [address] [place] [address] Repository 11/09/2017/11/10/19 [id number] Ambulatory BMSBuilding: [address] Repository 10/29/2017/10/30/19 [id number] Ambulatory [address] Repository 09/28/2017/10/01/19 [id number] Ambulatory [address] Repository 09/14/2017/09/15/19 [id number] Emergency [facility] ding:ED Repository PAYERS PAYERS ENCOUNTER GUARANTOR PAYER SUBSCRIBER SOURCE 05/24/2018 NILESH D Primary NILESH D [place] [id number] Insurance:GOODMELL SHORTDOB: [facility] [id number] Number: Repository [address]Rhg: [phone] [phone] () Date:[id number] [address]GY: 05/24/2018 Secondary NOT GIVENUNK [facility] Insurance:SELF PAY [facility] Number: Effective Repository Date:2018-05-24 11/11/2017 NILESH Primary NILESH SHORTDOB: [facility] SHORTDOB: Insurance:[place] [id number] [employer] [id number] [address] Number: [place], [place] [id number]: [phone]~BRANDYSHO Date:2017-11-11 [phone] [email or web address] [id number] ()Tel: [phone] el: [phone] Name:RUTHIE Frank [phone] () [phone] [place] [address]BR: (HP)Tel: (WP) 11/09/2017 NILESH D Primary Insurance:SELF NOT GIVENUNK [facility] [id number] PAY [facility] Number: Effective [place], [place] Date:2017-11-09 Repository [address]Qya: (HP) 09/14/2017 NILESH D Primary NILESH D [place] [id number] Insurance:ANTHEMPolicy SHORTDOB: [facility] Number: [id number] [id number] Repository [address]Idj: [phone]) Date:[phone] () [id number], [place] [address]SM: 09/14/2017 Secondary NOT GIVENUNK [facility] Insurance:SELF PAY [facility] Number: Effective Repository Date:2017-09-14
== END 2018-05-24 15:56 | disposition home or self-care (01) ==
LOC: ED 15:25
PROVIDERS: Emergency Provider Emergency Medicine
DX: S00.81XA Abrasion of other part of head, initial encounter (principal); W19.XXXA Unspecified fall, initial encounter; W01.10XA Fall on same level from slipping, tripping and stumbling with subsequent striking against unspecified object, initial encounter; Y93.89 Activity, other specified; Y92.89 Other specified places as the place of occurrence of the external cause; Y99.0 Civilian activity done for income or pay; Z23 Encounter for immunization; R03.0 Elevated blood-pressure reading, without diagnosis of hypertension; E66.9 Obesity, unspecified; Z87.891 Personal history of nicotine dependence
CPT/HCPCS: 90715; 99282

== ENCOUNTER → 2021-02-27 | Outpatient (CLI) | payer SELFPAY | END | disposition home or self-care (01) | LOC: LABSPEC 07:51 | PROVIDERS: Visit Provider Otolaryngology | DX: Z11.59 Encounter for screening for other viral diseases (principal); Z03.818 Encounter for observation for suspected exposure to other biological agents ruled out | CPT/HCPCS: 87635; U0005; U0003 ==

== ENCOUNTER → 2024-10-13 | Outpatient (CLI) | payer BC, SELFPAY ==
[2024-10-13 12:38] LABS: Absolute Lymphocyte Count 1.43 X10^3/uL (0.83-4.51); Absolute Neutrophil Count 4.7 X10^3/uL (2.0-7.7); Basophil# 0.07 X10^3/uL; Eosinophil# 0.15 X10^3/uL; Eosinophils% 2.1 % (0-5); Hematocrit 39.9 % (37-47); Hemoglobin 12.9 g/dL (12.0-15.0); Lymphocyte # 1.43 X10^3/ul (0.83-4.51); Lymphocyte % 20.3 % (19-41); Mean Corp Hgb Conc 32.3 g/dL (32-36); Mean Corpuscular Hgb 29.4 pg (27.0-32.0); Mean Corpuscular Volume 90.9 fL (81-99); Mean Platelet Vol. 11.7 fl (6.2-12.0); Monocyte# 0.69 X10^3/uL; Monocyte% 9.8 % (0-10); NRBC Flagged by Analyzer 0 % (0-5); Neutrophil # 4.67 X10^3/uL (2.7-7.7); Neutrophil % 66.5 % (47-70); POSITIVE COUNT YES; Platelet Count 57 K/mm3 (150-450); RBC Distribution Width CV 13.6 % (11.6-14.6); RBC Distribution Width SD 45.8 fl (35.1-43.9); Red Blood Count 4.39 M/mm3 (4.2-5.4)
[2024-10-13 12:40] LABS: Differential Indicated SCAN CRITERIA MET
[2024-10-13 13:01] LABS: Differential Comment SCANNED; Platelet Estimate MKD DEC (ADEQ)
[2024-10-13 13:40] LABS: Hemoglobin A1c 5.9 % (<=5.6)
[2024-10-13 14:03] LABS: ALB/GLOB Ratio 1.5 RATIO (0.9-2.4); AST(SGOT) 14 U/L (<=31); Alanine Aminotransfer ALT/SGPT 12 U/L (<=34); Alkaline Phosphatase 79 U/L (35-104); Anion Gap 11 (5-15); BUN 15 mg/dL (4-19); BUN/Creat Ratio 22.1 RATIO (10-20); Calcium,Total 8.9 mg/dL (7.6-11.0); Carbon Dioxide 21.5 mmol/L (21.0-32.0); Chloride 105 mmol/L (98-108); Cholesterol 177 mg/dL (<=200); Creatinine, Serum 0.66 mg/dL (0.70-1.20); EST Glomerular Filtration Rate 112 (>60); Globulin 2.7 g/dL (2.2-4.2); Glucose 92 mg/dL (70-99); High Density Lipoprotein 51 mg/dL; Low Density Lipoprotein Calc. 110 mg/dL; Potassium 4.2 mmol/L (3.3-5.1); Protein, Total 6.7 g/dL (5.9-8.4); Sodium Level 137 mmol/L (133-145); Total Bilirubin 0.34 mg/dL (0.00-1.30); Triglycerides 80 mg/dL; Very Low Density Lipoprotein 16 mg/dL (5-40)
== END | disposition home or self-care (01) ==
LOC: BFHLAB 08:59
PROVIDERS: PCP Nurse Practitioner Family; Visit Provider Nurse Practitioner Family
DX: Z00.01 Encounter for general adult medical examination with abnormal findings (principal); E11.9 Type 2 diabetes mellitus without complications
CPT/HCPCS: 36415; 80053; 80061; 83036; 85025